=== PATIENT | female | born 1960 | race Caucasian/White ===

== ENCOUNTER 2016-05-17 07:23 | Emergency (ER) | payer OTHER ==
[~2016-05-17] VITALS: Ht 154.9 cm; Wt 77.1 kg
[~2016-05-17 07:23] MED LIST: ALBUTEROL17 G1 IH; AMBIEN CR12.5 MG PO; BIOTIN; FLOVENT 11120 INHALA IH; LEXAPRO10 MG PO; LIPITOR5 MG PO
[2016-05-17 08:18] LABS: EOSINOPHIL (%) 1.6 % (0-5); EOSINOPHIL COUNT 0.1 K/uL (0-0.3); HEMATOCRIT 41.4 % (36.0-46.0); IMMATURE GRANULOCYTE (%) 0.6 % (0.0-0.7); INSTRUMENT ABS NEUTROPHIL CT 5.6 K/uL; LYMPHOCYTE COUNT 0.9 K/uL (1.0-2.8); MCH 31.3 PG (29.0-34.0); MCHC 34.3 G/DL (30.0-36.0); MCV 91.2 FL (83-99); MEAN PLAT.VOLUME 10.8 uM^3 (9.5-12.4); MONOCYTE (%) 5.1 % (3-12); MONOCYTE COUNT 0.4 K/uL (0-0.8); NEUTROPHIL (%) 79.1 % (45-76); NEUTROPHIL COUNT 5.6 K/uL (1.8-6.4); PLATELET COUNT 196 K/uL (156-360); RBC DIS.WIDTH-CV 12.7 % (11.8-14.6); RBC DIS.WIDTH-SD 41.7 % (39-53); RED BLOOD COUNT 4.54 M/uL (3.80-5.20); WHITE BLOOD COUNT 7.1 K/uL (4.1-10.2)
[2016-05-17 08:27] LABS: CHLORIDE 105 mEq/L (99-109); POTASSIUM 4.2 mEq/L (3.7-5.4)
[2016-05-17 08:28] LABS: SODIUM 140 mEq/L (136-147)
[2016-05-17 08:29] LABS: GLUCOSE 169 mg/dL (70-99)
[2016-05-17 08:31] LABS: ANION GAP 12 MEQ/L (2-14)
[2016-05-17 08:33] LABS: GFR ESTIMATE (CALCULATED) > 59 mL/min/
[2016-05-17 08:34] LABS: UREA NITROGEN (BUN) 19 mg/dL (9-23)
[2016-05-17 08:38] LABS: TROP-I INTERPRETATION NEGATIVE; TROPONIN-I < 0.01 ng/mL (0.0-0.30)
[2016-05-17 11:13] LABS: TROP-I INTERPRETATION NEGATIVE; TROPONIN-I < 0.01 ng/mL (0.0-0.30)
[2016-05-17 11:27] VITALS: BP 120/79
[2016-05-17] MEDS ORDERED: ANTIVERT25 MG PO (12:15)
== END 2016-05-17 12:19 | disposition home or self-care (01) ==
LOC: EME 07:23
PROVIDERS: Emergency Medicine
DX: R07.89 Other chest pain (principal); R42 Dizziness and giddiness; R11.2 Nausea with vomiting, unspecified; R19.7 Diarrhea, unspecified; R05 Cough; E78.5 Hyperlipidemia, unspecified
CPT/HCPCS: 71010; 80048; 84484; 85025; 93005; 99281; 99285; J2405; J7030